=== PATIENT | male | born 1975 | race Caucasian/White ===

== ENCOUNTER 2019-03-03 13:02 | Emergency (ER) | payer SELFPAY ==
[~2019-03-03] VITALS: Ht 188 cm; Wt 77.6 kg
--- NOTE | 2019-03-03 13:12 | NUR ---
CALLED TO DO A SECURITY CHECK ON PT
[2019-03-03] MEDS ORDERED: IV NS 0.9% 1,000 ML BAG IV ONE (13:30)
--- NOTE | 2019-03-03 13:30 | NUR ---
patient BIBRA found sleeping in the street, connected to the monitor and pulse ox. Kept comfortable, will continue to monitor accordingly.
[2019-03-03 14:00] VITALS: BP 135/71
--- NOTE | 2019-03-03 14:04 | NUR ---
informed Dr. Shah regarding patient is hard stick and MD will cancel IV NS. Will continue to monitor accordingly.
--- NOTE | 2019-03-03 19:56 | NUR ---
Patient eloped from facility. ER MD notified.
== END 2019-03-03 19:57 | disposition left against medical advice (07) ==
LOC: ER 13:07
DX: F10.129 Alcohol abuse with intoxication, unspecified (principal); Y90.8 Blood alcohol level of 240 mg/100 ml or more; Z60.2 Problems related to living alone
CPT/HCPCS: 36415; G0480